=== PATIENT | female | born 1995 | race Caucasian/White ===

== ENCOUNTER → 2016-12-03 | Outpatient (CLI) | payer BC ==
--- NOTE | 2016-12-03 11:31 | KCIC ---
CT HEAD WO CONTRAST History: Evaluate shunt status, baseline Comparison: None. Technique: Noncontrast CT imaging was performed of the head. Exposure: One or more of the following individualized dose reduction techniques were utilized for this examination: 1. Automated exposure control 2. Adjustment of the mA and/or kV according to patient size 3. Use of iterative reconstruction technique. Findings: There are 2 right transparietal Shontz, tip of one catheter terminating in the right lateral ventricle and the other terminating to the left of the midline in the region of the left lateral ventricle. Neither of these catheters is attached to external apparatus. There is also a left transfrontal shunt with the tip terminating just to the right of midline closer to the foramen of Monro which is attached to external catheter tubing, short segment gap in appearance of the catheter on the order of 0.2 cm best seen on image 28 series 3. Ventricles are not dilated. There is no evidence of acute intracranial hemorrhage or midline shift. Ya-white differentiation of the major vascular territories is preserved. There are some areas of mild volume loss of the posterior parasagittal parietal regions bilaterally. Mastoid air cells are aerated. Paranasal sinuses are mostly aerated, patchy minimal ethmoid and sphenoid sinus mucosal thickening. Impression: 1. There is left transfrontal shunt attached to external tubing, appearance of a short segment gap in the external catheter tubing although possibly due to radiolucent connector unless suspicion for discontinuity, no previous exams to evaluate for change. There are also 2 right transparietal shunts which are not attached to external tubing. Ventricles are not dilated. Electronically signed by: Jason Novoa MD (12/03/2016 11:28 AM) [id number]
== END | disposition home or self-care (01) ==
LOC: KCIC CT 10:15
PROVIDERS: ATTEND Internal Medicine
DX: Z98.2 Presence of cerebrospinal fluid drainage device (principal)
CPT/HCPCS: 70450

== ENCOUNTER → 2016-12-03 | Outpatient (CLI) | payer BC ==
--- NOTE | 2016-12-03 12:14 | KCIC ---
SKULL 2V, KUB, CHEST PA LATERAL dated 12/03/2016 12:00 AM. Comparison: None. Clinical Indication: Evaluate [employer] shunt tubing.. Findings: 2 views of the skull show 2 [employer] shunt tubes 1 of which extends from frontal approach the left and one from a parietal approach on the right. The right-sided tube appears to be disconnected. The left frontal catheter appears to be intact with standing along the left neck. PA and lateral views of the chest show intact left-sided tubing extending into the abdomen. There is a small linear focus of increased density in the upper right chest that may represent a small amount of residual tubing soft tissues. Lungs are clear. Single view abdomen shows intact shunt tubing extending in the left abdomen, coiled in the pelvis. There is an additional portion of tube in the left pelvis that is likely related to residual tubing from prior right-sided [employer] shunt. Bowel gas pattern nonobstructive. Impression: 1. [employer] shunt tubing as described above. The left-sided shunt is intact. The right-sided shunt has been disconnected with some residual tube fragments in the upper right chest and lower left pelvis. Electronically signed by: Christiano Whitehead MD (12/03/2016 12:10 PM) [id number]
--- NOTE | 2016-12-03 12:14 | KCIC ---
SKULL 2V, KUB, CHEST PA LATERAL dated 12/03/2016 12:00 AM. Comparison: None. Clinical Indication: Evaluate [employer] shunt tubing.. Findings: 2 views of the skull show 2 [employer] shunt tubes 1 of which extends from frontal approach the left and one from a parietal approach on the right. The right-sided tube appears to be disconnected. The left frontal catheter appears to be intact with standing along the left neck. PA and lateral views of the chest show intact left-sided tubing extending into the abdomen. There is a small linear focus of increased density in the upper right chest that may represent a small amount of residual tubing soft tissues. Lungs are clear. Single view abdomen shows intact shunt tubing extending in the left abdomen, coiled in the pelvis. There is an additional portion of tube in the left pelvis that is likely related to residual tubing from prior right-sided [employer] shunt. Bowel gas pattern nonobstructive. Impression: 1. [employer] shunt tubing as described above. The left-sided shunt is intact. The right-sided shunt has been disconnected with some residual tube fragments in the upper right chest and lower left pelvis. Electronically signed by: Christiano Whitehead MD (12/03/2016 12:10 PM) [id number]
--- NOTE | 2016-12-03 12:14 | KCIC ---
SKULL 2V, KUB, CHEST PA LATERAL dated 12/03/2016 12:00 AM. Comparison: None. Clinical Indication: Evaluate [employer] shunt tubing.. Findings: 2 views of the skull show 2 [employer] shunt tubes 1 of which extends from frontal approach the left and one from a parietal approach on the right. The right-sided tube appears to be disconnected. The left frontal catheter appears to be intact with standing along the left neck. PA and lateral views of the chest show intact left-sided tubing extending into the abdomen. There is a small linear focus of increased density in the upper right chest that may represent a small amount of residual tubing soft tissues. Lungs are clear. Single view abdomen shows intact shunt tubing extending in the left abdomen, coiled in the pelvis. There is an additional portion of tube in the left pelvis that is likely related to residual tubing from prior right-sided [employer] shunt. Bowel gas pattern nonobstructive. Impression: 1. [employer] shunt tubing as described above. The left-sided shunt is intact. The right-sided shunt has been disconnected with some residual tube fragments in the upper right chest and lower left pelvis. Electronically signed by: Christiano Whitehead MD (12/03/2016 12:10 PM) [id number]
== END | disposition home or self-care (01) ==
LOC: KCIC 11:06
PROVIDERS: ATTEND Nurse Practitioner Adult Health
DX: Z46.82 Encounter for fitting and adjustment of non-vascular catheter (principal); Z98.2 Presence of cerebrospinal fluid drainage device
CPT/HCPCS: 70250; 71020; 74000

== ENCOUNTER → 2018-06-03 | Outpatient (CLI) | payer BC ==
--- NOTE | 2018-06-03 10:58 | KCIC ---
Examination: CT left hand fifth digit without contrast HISTORY: History of pain in the fifth digit COMPARISON: None available TECHNIQUE: Axial CT images of the left fifth digit were performed without contrast. Coronal and sagittal reformats are performed. 1 mm thin cut images of the fifth digit are performed. Exposure: One or more of the following individualized dose reduction techniques were utilized for this examination: 1. Automated exposure control 2. Adjustment of the mA and/or kV according to patient size 3. Use of iterative reconstruction technique. Findings: The alignment of the fifth metacarpophalangeal joint, interphalangeal joint grossly appears unremarkable. There is a faint calcification identified medial to the PIP joint of the fifth digit likely capsular calcification. There is no acute fracture or dislocation identified. The visualized extensor tendon grossly appears unremarkable. IMPRESSION: 1. Faint thin calcification identified medial to the PIP joint of the fifth digit, nonspecific, could be capsular calcification or calcific periarthritis. Electronically signed by: Erasmo Capps MD (06/03/2018 10:56 AM) [id number]
== END | disposition home or self-care (01) ==
LOC: KCIC CT 09:14
PROVIDERS: ATTEND Orthopaedic Surgery Hand Surgery
DX: M25.842 Other specified joint disorders, left hand (principal)
CPT/HCPCS: 73200